=== PATIENT | female | born 1975 | race Caucasian/White ===

== ENCOUNTER → 2025-10-13 | Outpatient (CLI) | payer OTHER ==
[2025-10-14 06:14] LABS: THYROGLOBULIN ANTIBODY <1.0 IU/mL (0.0-0.9); THYROID PEROXIDASE (TPO) AB 16 IU/mL (0-34)
== END | disposition home or self-care (01) ==
LOC: LAB 11:56
PROVIDERS: ATTEND Internal Medicine Endocrinology, Diabetes & Metabolism
DX: E89.0 Postprocedural hypothyroidism (principal)
CPT/HCPCS: 36415; 84436; 84443; 84481; 86376; 86800